=== PATIENT | male | born 2000 | race Caucasian/White ===

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

== ENCOUNTER 2021-02-18 07:22 | Emergency (ER) | payer BC ==
[~2021-02-18] VITALS: Ht 190.5 cm; Wt 70.0 kg
[2021-02-18 07:26] VITALS: BP 121/73
[2021-02-18] MEDS ORDERED: BECL10.62 INH (08:53)
[2021-02-18] MEDS ORDERED: ALBU6.7H9 INH (08:53)
[2021-02-18] MEDS ORDERED: AZIT250T12 MT (08:54)
== END 2021-02-18 09:07 | disposition home or self-care (01) ==
LOC: ER 07:22
DX: J40 Bronchitis, not specified as acute or chronic (principal)
CPT/HCPCS: 71045; 99283

== ENCOUNTER → 2022-01-17 | Outpatient (CLI) | payer BC ==
[~2022-01-17] MED LIST: ALBU6.7H9 INH; AZIT250T12 MT; BECL10.62 INH
[2022-01-17 16:15] LABS: CLARITY URINE CLEAR (CLEAR); COLOR URINE YELLOW (YELLOW); KETONES URINE NEGATIVE (NEGATIVE); LEUKOCYTE ESTERASE URINE TRACE (NEGATIVE); NITRITE URINE NEGATIVE (NEGATIVE); OCCULT BLOOD URINE NEGATIVE (NEGATIVE); PH URINE 7.5 (4.5-8.0); PROTEIN URINE NEGATIVE (NEGATIVE); SPECIFIC GRAVITY URINE 1.006 (1.005-1.030); UROBILINOGEN URINE 0.2 E.U./dL (0.2-1.0)
[2022-01-17 16:16] LABS: BASOPHILS % 0.9 % (0.0-2.0); HEMATOCRIT. 46.6 % (42.0-52.0); HEMOGLOBIN. 15.3 g/dL (14.0-18.0); LYMPHOCYTES % 14.6 % (20.0-50.0); MEAN CORPUSCULAR HEMOGLOBIN 26.5 pg (28.0-32.0); MEAN CORPUSCULAR VOLUME 80.4 fL (80.0-94.0); MONOCYTES % 12.2 % (2.0-8.0); NEUTROPHILS % 70.3 % (40.0-76.0); PLATELET 254 x1000/uL (130-400); RED CELL DISTRIBUTION WIDTH 14.3 % (11.6-14.6)
[2022-01-17 16:29] LABS: CHLORIDE 105 mEq/L (98-107)
[2022-01-17 16:37] LABS: LDL CHOLESTEROL 123 mg/dL (5-100)
[2022-01-17 16:38] LABS: HDL CHOLESTEROL 65 mg/dL (40-59)
[2022-01-17 16:39] LABS: PROSTRATE SPECIFIC AG TOTAL 0.48 ng/mL (0.0-4.0)
[2022-01-17 16:41] LABS: T4 FREE 0.98 ng/dL (0.76-1.46)
[2022-01-17 16:50] LABS: HEPATITIS B SURFACE ANTIGEN NEGATIVE
[2022-01-20 08:10] LABS: FOLICLE STIMULATING HORMONE 3.5 mIU/mL (1.5-12.4); HAV IGM ANTIBODY Negative (Negative); HBSAG SCREEN Negative (Negative); HEPATITIS B CORE IGM AB Negative (Negative); HEPATITIS C AB <0.1 s/co ratio (0.0-0.9); VITAMIN D 25-OH 77.1 ng/mL (30.0-100.0)
== END | disposition home or self-care (01) ==
LOC: LAB 15:43
PROVIDERS: ATTEND Internal Medicine
DX: Z00.00 Encounter for general adult medical examination without abnormal findings (principal); Z13.9 Encounter for screening, unspecified; N52.9 Male erectile dysfunction, unspecified; N39.0 Urinary tract infection, site not specified
CPT/HCPCS: 36415; 80053; 80061; 80074; 81003; 82306; 83001; 83002; 83036; 84153; 84403; 84439; 84443; 84481; 85025; 86677; 86705; 86709; 86803; 87340; G0103